=== PATIENT | female | born 1965 | race African-American/Black ===

== ENCOUNTER 2020-05-28 21:59 | Emergency (ER) | payer MEDICAID ==
[2020-05-28] MEDS ORDERED: cloNIDine 0.1 MG Tab PO ONE (22:33)
--- NOTE | 2020-05-28 22:53 | EDM.PDOC ---
ED HPI GENERAL MEDICAL PROBLEM - General Chief Complaint: Cardiovascular Problem Stated Complaint: BP HIGH CANT FOCUS Time Seen by Provider: 05/28/20 22:01 Source of Information: Reports: Patient History Limitations: Reports: No Limitations - History of Present Illness INITIAL COMMENTS - FREE TEXT/NARRATIVE: This is a 54-year-old female she was recently started on some medicine for her blood pressure. At the time she was placed on losartan 25 mg about 3 days ago because her blood pressure was 168/105 in the office. She has been checking her blood pressures and they seem to be rising. She says she checks them twice a day and they just keep going up. Today she noted her blood pressure was elevated in the 190s over 110s and she had a mild headache but no chest pain or shortness of breath. During this time she says she felt a little off but she did not have any dizziness vertigo or loss of balance. She comes to the ER because she is concerned about her elevated blood pressure. - Related Data Allergies Allergy/AdvReac Type Severity Reaction Status Date / Time erythromycin base Allergy Severe Cannot Verified 05/28/20 22:19 Remember rofecoxib [From Vioxx] Allergy Severe Cannot Verified 05/28/20 22:19 Remember Home Meds: Home Meds Losartan [Cozaar] 25 mg PO DAILY 05/28/20 [History] cloNIDine [Catapres] 0.2 mg PO Q8H PRN #10 tab 05/29/20 [Rx] Past Medical History Cardiovascular History: Reports: Hypertension Genitourinary History: Reports: Other (See Below) Other Genitourinary History: ectopic - Infectious Disease History Infectious Disease History: Reports: None - Past Surgical History HEENT Surgical History: Reports: Tonsillectomy Female Surgical History: Reports: Section, Hysterectomy Social & Family History - Tobacco Use Tobacco Use Status *Q: Never Tobacco User Second Hand Smoke Exposure: No - Caffeine Use Caffeine Use: Reports: Tea - Recreational Drug Use Recreational Drug Use: No ED ROS GENERAL - Review of Systems Review Of Systems: See Below Constitutional: Denies: Fever, Chills HEENT: Reports: No Symptoms Respiratory: Denies: Shortness of Breath, Cough Cardiovascular: Denies: Chest Pain Endocrine: Reports: No Symptoms GI/Abdominal: Denies: Abdominal Pain, Nausea, Vomiting : Reports: No Symptoms Musculoskeletal: Reports: No Symptoms Skin: Reports: No Symptoms Neurological: Reports: Headache. Denies: Confusion, Numbness, Paresthesia, Tingling, Trouble Speaking, Difficulty Walking, Weakness Psychiatric: Reports: No Symptoms Hematologic/Lymphatic: Reports: No Symptoms ED EXAM, GENERAL - Physical Exam Exam: See Below Exam Limited By: No Limitations General Appearance: Alert, WD/WN, No Apparent Distress Eye Exam: Bilateral Eye: Normal Inspection Ears: Normal External Exam Nose: Normal Inspection Throat/Mouth: Normal Inspection, Normal Lips, Normal Voice, No Airway Compromise Head: Normocephalic Neck: Supple Respiratory/Chest: No Respiratory Distress, Lungs Clear, Normal Breath Sounds Cardiovascular: Regular Rate, Rhythm, No Murmur GI/Abdominal: Soft, Other (She denies any tenderness) Back Exam: Normal Inspection, Full Range of Motion Extremities: Normal Inspection, Normal Range of Motion Neurological: Alert, Oriented, Normal Cognition, No Motor/Sensory Deficits Psychiatric: Normal Affect, Normal Mood Skin Exam: Warm, Dry Course - Vital Signs Last Recorded V/S: Last Vital Signs Temp 97.4 F 05/28/20 22:17 Pulse 81 05/28/20 22:17 Resp 16 05/28/20 22:17 BP 160/102 H 05/28/20 23:30 Pulse Ox 98 05/28/20 22:17 - Orders/Labs/Meds Labs: Laboratory Tests 05/28/20 Range/Units 22:50 Sodium 137 (136-145) mEq/L Potassium 4.1 (3.5-5.1) mEq/L Chloride 100 (98-107) mEq/L Carbon Dioxide 27 (21-32) mEq/L Anion Gap 14.1 (5-15) BUN 14 (7-18) mg/dL Creatinine 1.1 H (0.55-1.02) mg/dL Est Cr Clr Drug Dosing TNP Estimated GFR (MDRD) 51 (>60) mL/min BUN/Creatinine Ratio 12.7 L (14-18) Glucose 84 (74-106) mg/dL Calcium 10.4 H (8.5-10.1) mg/dL Meds: Medications Discontinued Medications Generic Name Dose Route Start Last Admin Trade Name Freq PRN Reason Stop Dose Admin Clonidine HCl 0.3 mg 05/28/20 22:33 05/28/20 22:38 Catapres PO 05/28/20 22:34 0.3 mg ONETIME ONE Administration Ondansetron HCl 4 mg 05/28/20 23:40 05/28/20 23:46 Zofran Odt PO 05/28/20 23:41 4 mg ONETIME ONE Administration - Re-Assessments/Exams Free Text/Narrative Re-Assessment/Exam: 05/29/20 00:23 The blood pressure was one 220/120. We gave her 0.3 mg of clonidine and after about an hour and a half it was 127/77. After I went into the room began talking to her it went up to 144/86. We are going to increase the losartan to 50 mg a day and then only give her some clonidine to be used if she notices her blood pressure is starting to elevate. I went to have her off work for a couple of days and to follow-up with her doctor for adjustment of her medications. Departure - Departure Time of Disposition: 00:23 Disposition: Home, Self-Care 01 Condition: Fair Clinical Impression: Elevated blood pressure reading Prescriptions: cloNIDine [Catapres] 0.2 mg PO Q8H PRN #10 tab PRN Reason: Hypertension Instructions: Hypertension, Adult, [id number] Referrals: PCP,None [Primary Care Provider] - Forms: ED Department Discharge, ED Return to Work/School Form Additional Instructions: Increase your losartan to 50 mg every morning, only take your blood pressure twice a day unless you feel like it is up and if it is over 180 with the top number or 110 over the bottom number take 0.2 clonidine, lay down for at least an hour and then recheck your blood pressure, you need to follow-up with your doctor this coming week for recheck and adjustment of your blood pressure medications, return to the ER if needed Sepsis Event Note (ED) - Evaluation Sepsis Screening Result: No Definite Risk - Focused Exam Vital Signs: Vital Signs Temp Pulse Resp BP BP Pulse Ox 05/28/20 23:30 160/102 H 05/28/20 22:42 220/110 H 05/28/20 22:38 220/110 H 05/28/20 22:23 176/118 H 05/28/20 22:17 97.4 F 81 16 98
[2020-05-28] MEDS ORDERED: Ondansetron 4 MG Tab.DIS PO ONE (23:40)
== END 2020-05-29 00:40 | disposition home or self-care (01) ==
LOC: JD.ED 21:59
DX: R03.0 Elevated blood-pressure reading, without diagnosis of hypertension (principal); I10 Essential (primary) hypertension; Z88.1 Allergy status to other antibiotic agents; Z90.710 Acquired absence of both cervix and uterus; Z79.899 Other long term (current) drug therapy
CPT/HCPCS: 36415; 80048; 99283; A9270

== ENCOUNTER 2021-04-17 19:26 | Emergency (ER) | payer MEDICAID, OTHER ==
[2021-04-17] MEDS ORDERED: Hydrochlorothiazide 12.5 MG Cap PO ONE (21:58)
[2021-04-17] MEDS ORDERED: amLODIPine 10 MG Tab PO ONE (21:58)
[2021-04-17] MEDS ORDERED: Cyclobenzaprine 10 MG Tab PO ONE (21:59)
--- NOTE | 2021-04-17 22:00 | EDM.PDOC ---
ED HPI GENERAL MEDICAL PROBLEM - General Chief Complaint: Upper Extremity Injury/Pain Stated Complaint: LEFT SHOULDER INJURY Time Seen by Provider: 04/17/21 21:37 Source of Information: Reports: Patient, RN Notes Reviewed History Limitations: Reports: No Limitations - History of Present Illness INITIAL COMMENTS - FREE TEXT/NARRATIVE: Patient is a 55-year-old female presenting to the emergency department with complaints of right shoulder pain. She reports that she was at work had a inversion table fall and hit her in the shoulder. She is been experiencing pain since that time. Denies any previous injuries to this joint. On triage, patient's blood pressure was found to be significantly elevated at 227/96. Patient reports that she is prescribed losartan and clonidine, however she is not taking these medications. She reports that they make her cramp up. She has not been having any headaches, confusion, or vision changes. Denies any chest pain or shortness of breath. Reports that she has never tried any other blood pressure medications. States that she has had a very stressful day at work and that she thinks her blood pressure is related to this. She does not want to receive any IV or injected medications today. Left Shoulder Pain Score (Numeric/FACES): 6 - Related Data Allergies Allergy/AdvReac Type Severity Reaction Status Date / Time erythromycin base Allergy Severe Cannot Verified 05/28/20 22:19 Remember rofecoxib [From Vioxx] Allergy Severe Cannot Verified 05/28/20 22:19 Remember Home Meds: Home Meds Losartan [Cozaar] 25 mg PO DAILY 05/28/20 [History] cloNIDine [Catapres] 0.2 mg PO Q8H PRN #10 tab 05/29/20 [Rx] Cyclobenzaprine [Flexeril] 10 mg PO TID PRN #10 tab 04/17/21 [Rx] amLODIPine Besylate [Amlodipine Besylate] 10 mg PO DAILY #30 tablet 04/17/21 [Rx] hydroCHLOROthiazide [Hydrochlorothiazide] 12.5 mg PO DAILY #30 tablet 04/17/21 [Rx] Past Medical History Cardiovascular History: Reports: Hypertension Genitourinary History: Reports: Other (See Below) Other Genitourinary History: ectopic - Infectious Disease History Infectious Disease History: Reports: None - Past Surgical History HEENT Surgical History: Reports: Tonsillectomy Female Surgical History: Reports: Section, Hysterectomy Social & Family History - Caffeine Use Caffeine Use: Reports: Tea Review of Systems - Review of Systems Review Of Systems: Comprehensive ROS is negative, except as noted in HPI. ED EXAM, GENERAL - Physical Exam Exam: See Below General Appearance: Alert, WD/WN, No Apparent Distress Respiratory/Chest: No Respiratory Distress, Lungs Clear, Normal Breath Sounds, No Accessory Muscle Use, Chest Non-Tender GI/Abdominal: Normal Bowel Sounds, Soft, Non-Tender, No Organomegaly, No Distention, No Abnormal Bruit, No Mass Extremities: Other (Tenderness to palpation of the dorsal aspect of the right shoulder. No ecchymosis or obvious deformity. Range of motion limited due to pain.) Neurological: Alert, Oriented, CN II-XII Intact, Normal Cognition, Normal Gait, Normal Reflexes, No Motor/Sensory Deficits Psychiatric: Normal Affect, Normal Mood Skin Exam: Warm, Dry, Intact, Normal Color, No Rash Course - Vital Signs Last Recorded V/S: Last Vital Signs Temp 98.2 F 04/17/21 21:11 Pulse 62 04/17/21 21:11 Resp 18 04/17/21 21:11 BP 227/96 H 04/17/21 21:11 Pulse Ox 100 04/17/21 21:11 - Orders/Labs/Meds Orders: Active Orders 24 hr Category Date Time Status Shoulder Comp Lt [CR] Stat Exams 04/17/21 21:30 Taken - Re-Assessments/Exams Free Text/Narrative Re-Assessment/Exam: Patient is a 55-year-old female presenting to the emergency department with complaints of right shoulder pain. X-ray was completed prior to patient being roomed and shows no acute abnormalities. Patient is likely suffering from a contusion. Her blood pressure was found to be significantly elevated at 227/96. Patient reports she is prescribed losartan and clonidine, however she does not take these because they make her "cramp". States that she told her primary care provider this but they did not offer to change her medications. She is making lifestyle changes including diet and exercise. She is adamant that she does not want to receive any injection or IV medications today. She initially did not want her blood pressure treated all, however after long conversation, she has agreed to receiving a prescription for different blood pressure medications. I will start her on hydrochlorothiazide and amlodipine. Recommend that she get a blood pressure cuff and monitor her blood pressure readings. Follow-up with her primary care provider in 1 week for reevaluation. With regards to the shoulder, she will be provided a sling to stabilize the joint recommend ice and elevation. She is complaining of intermittent spasms in her back which she states is chronic for her. I will write a prescription for Flexe ril for this. Discharge instructions as documented. Departure - Departure Time of Disposition: 21:59 Disposition: Home, Self-Care 01 Condition: Good Clinical Impression: Elevated blood pressure reading Contusion of shoulder, right Qualifiers: Encounter type: initial encounter Qualified Code(s): S40.011A - Contusion of right shoulder, initial encounter - Discharge Information *PRESCRIPTION DRUG MONITORING PROGRAM REVIEWED*: No *COPY OF PRESCRIPTION DRUG MONITORING REPORT IN PATIENT MIGUEL ANGEL: No Prescriptions: amLODIPine Besylate [Amlodipine Besylate] 10 mg PO DAILY #30 tablet Cyclobenzaprine [Flexeril] 10 mg PO TID PRN #10 tab PRN Reason: Muscle Spasm hydroCHLOROthiazide [Hydrochlorothiazide] 12.5 mg PO DAILY #30 tablet Instructions: Contusion, [id number], Hypertension, Adult, [id number] Referrals: PCP,None [Primary Care Provider] - Additional Instructions: You were seen in the emergency department today for evaluation of pain to your right shoulder after having equipment fallen at work. X-rays are completed and found to be normal. There is no fracture. You are likely suffering from contusion of your shoulder. You been provided with a sling. Wear this to stabilize the joint over the next couple days. Recommend Tylenol and ibuprofen as well as intermittent icing. You have been provided a prescription for Flexeril for muscle spasms. If after 1 week you continue to have pain, miguel angel mmend follow-up in the clinic. While in the ER, your blood pressure was found to be significantly elevated. You have been started on amlodipine and hydrochlorothiazide for treatment of this. First doses were given in the ER this evening. Recommend purchasing a blood pressure cuff and check your blood pressures daily at home. Keep a log of these. Follow-up with your primary care provider in 1 week to have medications adjusted as needed. Return to ER for any new or worsening symptoms of concern. Sepsis Event Note (ED) - Evaluation Sepsis Screening Result: No Definite Risk - Focused Exam Vital Signs: Vital Signs Temp Pulse Resp BP Pulse Ox 04/17/21 21:11 98.2 F 62 18 227/96 H 100 - My Orders Last 24 Hours: My Active Orders 04/17/21 21:30 Shoulder Comp Lt [CR] Stat - Assessment/Plan Last 24 Hours: My Active Orders 04/17/21 21:30 Shoulder Comp Lt [CR] Stat
--- NOTE | 2021-04-18 07:56 | CR ---
Left shoulder: 3 views of the left shoulder were obtained. Comparison: No prior shoulder study is available. Mild degenerative change is seen within the acromioclavicular joint with slight joint space narrowing and minimal inferior spurring. Glenohumeral joint appears within normal limits. No acute fracture, dislocation or other bony abnormality is appreciated. Visualized left ribs shows no discrete abnormality. Impression: 1. Slight degenerative change. 2. Nothing acute is appreciated on 3 view left shoulder study. Diagnostic code #2
== END 2021-04-17 22:28 | disposition home or self-care (01) ==
LOC: JD.ED 19:26
DX: S40.011A Contusion of right shoulder, initial encounter (principal); I10 Essential (primary) hypertension; Z88.1 Allergy status to other antibiotic agents; Z79.899 Other long term (current) drug therapy; W20.8XXA Other cause of strike by thrown, projected or falling object, initial encounter; Y99.0 Civilian activity done for income or pay
CPT/HCPCS: 73030; 99283; A9270; 99284